=== PATIENT | female | born 1975 | race Caucasian/White ===

== ENCOUNTER 2023-07-20 15:38 | Emergency (ER) | payer OTHER, SELFPAY ==
[2023-07-20 15:45] VITALS: BP 125/81
[2023-07-20 16:02] LABS: % Basophils 0.7 % (0-2); % Eosinophils 3.5 % (0-6); % Immature Granulocytes 0.3 % (0-0.5); % Lymphocytes 26.7 % (20.5-51.1); % Monocytes 9.4 % (1.7-9.3); % Neutrophils 59.4 % (42.2-75.2); Absolute Basophils 0.1 10^3/uL (0-0.2); Absolute Eosinophils 0.3 10^3/uL (0-0.7); Absolute Monocytes 0.7 10^3/uL (0.1-0.6); Absolute Neutrophils 4.5 10^3/uL (1.4-6.5); Hematocrit 39.7 % (37.0-47.0); Hemoglobin 13.6 g/dL (12.0-16.0); Mean Corp Hgb Conc. 34.3 g/dL (33.0-37.0); Mean Corpuscular Hgb 27.5 pg (27.0-31.0); Mean Corpuscular Volume 80.4 fL (81.0-99.0); Nucleated Red Blood Cells % 0 %; Platelet Count 295 10^3/uL (130-400); Red Blood Cell Count 4.94 10^6/uL (4.20-5.40); Red Cell Dist. Width 13.2 % (11.5-14.5); White Blood Cell Count 7.6 10^3/uL (4.8-10.8)
[2023-07-20 16:27] LABS: ALT (SGPT) 19 U/L (0-35); AST (SGOT) 24 U/L (14-36); Albumin 3.9 g/dl (3.5-5.0); Alkaline Phosphatase 49 U/L (38-126); Blood Urea Nitrogen 12 mg/dl (7-17); Calcium 9.1 mg/dl (8.4-10.2); Carbon Dioxide 26 mmol/L (22-30); Chloride 103 mmol/L (98-107); Glucose 80 mg/dl (70-99); Sodium 136 mmol/L (135-145); Total Bilirubin 0.8 mg/dl (0.2-1.3); Total Protein 6.5 g/dl (6.3-8.2); eGFR > 60.00
[2023-07-20 16:29] LABS: Troponin I < 0.012 ng/ml
[2023-07-20 16:34] LABS: Potassium 3.9 mmol/L (3.5-5.1)
--- NOTE | 2023-07-20 18:15 | ED.GENMED ---
History of Present Illness
<Lotus Greene PA-C - Last Filed: 07/20/23 22:21>
General
Chief Complaint: Chest Pain
Source: patient
Exam Limitations: none
Time Seen by Provider: 07/20/23 17:41
Nursing documentation reviewed up to this point in time: agreed with
Travel History
Have you had any contact with someone who has COVID-19?: No
Do you have any symptoms of coronavirus? Fever > 100 degrees, chills, cough, shortness of breath, sore throat, loss of taste or smell, muscle aches, or headache?: No
History of Present Illness
History of Present Illness:
Patient is a 47 y.o female with history known a PFO and exercise induced asthma presenting for evaluation following an episode of heart palpitations earlier today with associated dyspnea. She states that she was washing dishes earlier today around
when she had an approximately 30 second episode of heart palpitations. She endorses difficulty breathing and coughing which have persisted following palpations earlier today. She has remained somewhat short of breath with speaking and
generalized fatigue. No fever, chills, She denies any recent viral illnesses. No lower extremity edema or pain. She denies any recent travel or surgeries. No history of blood clots.
She uses albuterol as needed prior to exercise.
Her PFO was found during her second when she has a somewhat similar episode of palpitation. She follows with Dr. Gannon every few years for monitoring of PFO with no plans for surgical correction at this point.
Past History
<Lotus Greene PA-C - Last Filed: 07/20/23 22:21>
Past History
ED Past Medical History: Other (Migraine headaches) and Other (Muscular back pain, anxiety)
ED Past Surgical History: Cholecystectomy and Gynecological (LEEP procedure)
Social History
Alcohol: None
Drug: None
Personal:
Employment: Employed
Family History
Family History: Other (Noncontributory)
Phy Exam
<Lotus Greene PA-C - Last Filed: 07/20/23 22:21>
Physical Exam
Physical Exam:
General: Well appearing and non-toxic, vital signs reviewed�patient afebrile
HEENT: Atraumatic, normocephalic; pupils equal round reactive to light bilaterally, extraocular muscles intact, protecting airway
Neck: appears supple
CV: Regular rate and rhythm, heart sounds normal, no evidence of cyanosis; no chest wall tenderness
Resp: No evidence of respiratory distress, lungs clear, no accessory muscle use
Abd: Soft, nontender non-distended
Extremities: No deformities no evidence of cyanosis or edema, no tenderness to calves bilaterally
Neuro: alert and oriented x [address], speech normal, no focal motor deficits
Psych: Normal affect
Skin: Intact, no rashes
Scores
<Lotus Grenee PA-C - Last Filed: 07/20/23 22:21>
Heart Score for Chest Pain Patients
STEMI patient?: No
History: Slightly or Non-Suspicious
ECG: Normal
Age: >45 - <65 years
Risk Factors: No Risk Factors
Troponin: </= Normal Limit
Heart Score for Chest Pain Patients: 1
Heart Score Risk: 2.5% MACE over next 6 weeks
Course
<Lotus Greene PA-C - Last Filed: 07/20/23 22:21>
Orders/Labs/Results
Orders:
Orders
07/20/23 15:39
ECG [Electrocardiogram (*1)] Urgent
Reason for Study: Chest Pain
EKG- Treatment ONCE
07/20/23 15:53
CMP [Comprehensive Metabolic Panel] Urgent
Complete Blood Count/With Diff Urgent
Troponin I Urgent
07/20/23 18:40
Ipratropium/Albuterol Sulfate [Duoneb] 3 ml INH R NOW ONE
07/20/23 19:00
D-Dimer Urgent
Abnormal Lab Results
07/20/23
15:53
MCV 80.4 L fL
(81.0-99.0)
Absolute Monos (auto) 0.7 H 10^3/uL
(0.1-0.6)
Monocytes % 9.4 H %
(1.7-9.3)
07/20/23 15:53
07/20/23 15:53
Vital Signs
Initial and Last Documented VS:
Initial Vital Signs
Temp Pulse Resp BP Pulse Ox
97.9 F 68 18 125/81 100
07/20/23 15:45 07/20/23 15:45 07/20/23 15:45 07/20/23 15:45 07/20/23 15:45
Last Documented Vital Signs
Temp Pulse Resp BP Pulse Ox
97.9 F 78 18 110/71 99
07/20/23 15:45 07/20/23 19:22 07/20/23 19:22 07/20/23 19:22 07/20/23 19:22
<Jaya Ferrell, DO - Last Filed: 07/20/23 19:37>
Orders/Labs/Results
Orders:
Orders
07/20/23 15:39
ECG [Electrocardiogram (*1)] Urgent
Reason for Study: Chest Pain
EKG- Treatment ONCE
07/20/23 15:53
CMP [Comprehensive Metabolic Panel] Urgent
Complete Blood Count/With Diff Urgent
Troponin I Urgent
07/20/23 18:40
Ipratropium/Albuterol Sulfate [Duoneb] 3 ml INH R NOW ONE
07/20/23 19:00
D-Dimer Urgent
Abnormal Lab Results
07/20/23
15:53
MCV 80.4 L fL
(81.0-99.0)
Absolute Monos (auto) 0.7 H 10^3/uL
(0.1-0.6)
Monocytes % 9.4 H %
(1.7-9.3)
07/20/23 15:53
07/20/23 15:53
Vital Signs
Initial and Last Documented VS:
Initial Vital Signs
Temp Pulse Resp BP Pulse Ox
97.9 F 68 18 125/81 100
07/20/23 15:45 07/20/23 15:45 07/20/23 15:45 07/20/23 15:45 07/20/23 15:45
Last Documented Vital Signs
Temp Pulse Resp BP Pulse Ox
97.9 F 78 18 110/71 99
07/20/23 15:45 07/20/23 19:22 07/20/23 19:22 07/20/23 19:22 07/20/23 19:22
<Lotus Greene PA-C - Last Filed: 07/20/23 22:21>
MDM/Problems Addressed
Differential Diagnosis Includes:
Arrhythmia, PVCs, asthma attack, PE, anxiety, etc.
MDM/Problems Addressed:
Patient is a 47-year-old female with known PFO and history of exercise-induced asthma presenting for evaluation following a brief episode of palpitations earlier today associated with shortness of breath and coughing. The palpitations lasted for
approximately 1 minute and she has continued to be slightly short of breath and coughing since. No true chest pain. No fever, chills, sore throat, nasal congestion. No recent travel or recent surgeries. No pain or swelling in lower extremities.
No history of blood clots. Patient is hemodynamically stable upon arrival to emergency department. Physical exam as documented above. Lungs clear, chest wall nontender. No signs of DVT in lower extremities. She is afebrile her oxygen saturation
is 100 on room air. Her EKG is unremarkable shows normal sinus rhythm without any signs of ischemia. Basic labs and troponin obtained in triage. CBC and CMP without any clinically significant abnormalities. Troponin negative. Given patient's
history of PFO and persistent shortness of breath�will obtain D-dimer. Will give DuoNeb for suspected asthma component.
D-dimer negative. Patient feeling better after DuoNeb.
Suspect symptoms are likely due to PVCs with associated asthma component leading to shortness of breath. She has remained stable in the emergency department with O2 saturations at 100. 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 She is stable for discharge with close return precautions, prompt cardiology follow-up for possible repeat echo and Holter monitor and pulmonology follow-up for the management of asthma. Recommended to utilize her albuterol inhaler as
needed for intermittent coughing and asthma symptoms. Patient is comfortable with this plan. All questions answered.
Chronic conditions affecting care:
PFO, asthma
Acute Exacerbation and/or Progression of Chronic Illness:
Asthma attack, palpitations
<Lotus Greene PA-C - Last Filed: 07/20/23 22:21>
*Pulse Oximetry
Patient hypoxic: no
*EKG
Interpreted by ED Provider?: Yes
EKG Intrepretation Date: 07/20/23
Interpretation: normal
Comparison EKG: no changes
Heart Rate: 60
Rate: normal
Rhythm: sinus
[place]: normal axis
Interval: normal interval
QRS Pattern: normal QRS
Ischemia: no ischemia
*Real Estate Associate Attorney Interpretation
Rate: Real Estate Associate Attorney- N/A
*Critical Care Note
Total Time (30-74mins, 75-104mins- exclusive of procedures): Not Applicable
ED Attending Note
<Lotus Greene PA-C - Last Filed: 07/20/23 22:21>
-
Portions of this chart may have been created with voice recognition software.� Occasional wrong word or��sound alike� substitutions may have occurred due to the inherent limitations of voice recognition software.
<Jaya Ferrell, DO - Last Filed: 07/20/23 19:37>
ED Attending Note
Patient seen and examined by attending physician: Yes
I performed the substantive portion of visit, reviewed & personally made and approve the management plan that is documented in note by myself or YOAV.: Yes
ED Attending Note:
Patient is a 47-year-old female with a history of PFO and exercise-induced asthma who presents after approximately 20-minute episode this afternoon of having palpitations. Patient states felt rather irregular and would have pounding beats. Patient
coughed and it seemed to break. Patient states that time is felt heaviness to her breathing but denies any chest heaviness or pressure. Patient denies any recent illnesses or injuries. Patient denies fever chills, nasal congestion, sore throat or
cough. Patient denies any GI or symptoms. Patient denies any leg pain or swelling. Patient denies any history of PE or DVT. Patient found her PFO during her second and had difficulty with breathing during her third . It
was thought that she was having an asthma attack at that time. Patient went on inhalers and seemed to do fine. Patient has been doing well since. On physical exam patient does not appear to be in any distress. Patient is normocephalic with
supple neck and no adenopathy or thyromegaly. Heart is regular without murmur or gallop. Lungs are clear. Chest is nontender. Abdomen soft nontender. Extremities without cyanosis, edema or tenderness. EKG reviewed and unremarkable. Patient's
labs were also reviewed. In addition did a D-dimer on the patient. I suspect the patient may have been having episodes of PVCs. Patient has a floating derrick operator with whom she follows but has not for some time. Patient will be referred back to her
floating derrick operator for possible Holter monitor and echocardiogram.
Discharge Plan
Departure
Patient Disposition: Home (Routine Discharge)
Date of Disposition: 07/20/23
Time of Disposition: 19:39
Patient with high blood pressure during this ER visit?: No
Condition: Good
Covid-19: Not Applicable
Discharge Problem:
History of palpitations, Dyspnea
Instructions: Asthma, Adult (DC), Palpitations (DC)
Prescriptions:
No Action
albuterol sulfate 1 PUFF HFA aerosol inhaler
2 puff inhalation R Q4HPRN PRN (Reason: dyspnea) Qty: 1 0RF
acetaminophen 325 MG tablet
650 mg PO Q4HPRN PRN (Reason: mild pain) 0RF
ibuprofen 600 MG tablet
600 mg PO Q4HPRN PRN (Reason: moderate pain/cramps) 0RF
norethindrone (contraceptive) 0.35 mg (21) Tablet
0.35 mg PO DAILY
vitamin B complex Capsule
1 cap PO DAILY
magnesium Tablet
1 tab PO DAILY
[place] 3
1 tab PO DAILY
Vitamin D3
1 tab PO DAILY
biotin
1 tab PO DAILY
calcium
1 tab PO DAILY
collagen
1 tab PO DAILY
Referrals:
Radha Nelson MD [Active] - Call in 1-3 days for appt
Geovanni Jackson MD [Family Provider] -
Brianne Gannon MD [Active] - Call in 1-3 days for appt
Activity Restrictions/Additional Instructions:
-Return to the emergency department with any chest pain, shortness of breath, persistent palpitations, worsening in current symptoms, or any other concerns
-You should follow-up with your floating derrick operator shortly for further evaluation
-Follow-up with your director of broadcast for further evaluation/treatment of asthma
-You can use your albuterol inhaler as prescribed for intermittent coughing or asthma symptoms
Interventions
Interventions:
*Risk Screen - Suicide Last Done: 07/20/23 17:36
*General Assessment Last Done: 07/20/23 17:36
*Neglect/Abuse Screening Last Done: 07/20/23 17:36
ED- Fall Risk Assessment Last Done: 07/20/23 17:36
*ED COVID-19 Vaccine History Last Done: 07/20/23 17:36
*Nursing Disposition Last Done: 07/20/23 19:52
ED- Cardiac Assessment Last Done: 07/20/23 17:36
Discharge Date and Time
Discharge Date/Time: 07/20/23 19:55
[2023-07-20] MEDS: DUONEB 3 ML INH (18:51)
[2023-07-20 19:18] LABS: D-Dimer 0.32 ug/mlFEU (0.00-0.50)
[2023-07-20 19:22] VITALS: BP 110/71
== END 2023-07-20 19:55 | disposition home or self-care (01) ==
LOC: EMR 15:38
PROVIDERS: Physician Assistant; EMERGENCY PHYSICIAN Emergency Medicine; FAMILY PHYSICIAN Internal Medicine
DX: R00.2 Palpitations (principal); R06.00 Dyspnea, unspecified; J45.909 Unspecified asthma, uncomplicated; Z87.74 Personal history of (corrected) congenital malformations of heart and circulatory system; Z90.49 Acquired absence of other specified parts of digestive tract
CPT/HCPCS: 99283; 94640; 80053; 84484; 85025; 85379; 93005

== ENCOUNTER → 2023-07-27 17:16 | Outpatient (REF) | payer OTHER, SELFPAY | LOC: RCS 17:16 | PROVIDERS: ATTENDING PHYSICIAN Internal Medicine Cardiovascular Disease; FAMILY PHYSICIAN Internal Medicine | DX: R00.2 Palpitations (principal) | CPT/HCPCS: 93306 ==

== ENCOUNTER → 2023-08-02 17:24 | Outpatient (REF) | payer OTHER, SELFPAY | LOC: PAVMRI 17:24 | PROVIDERS: ATTENDING PHYSICIAN Psychiatry & Neurology Neurology; FAMILY PHYSICIAN Internal Medicine | DX: R26.89 Other abnormalities of gait and mobility (principal); Z82.0 Family history of epilepsy and other diseases of the nervous system | CPT/HCPCS: 72141 ==

== ENCOUNTER → 2023-09-02 15:14 | Outpatient (REF) | payer OTHER, SELFPAY ==
--- NOTE | 2023-09-02 16:08 | PTCARENOTE ---
Pt here for Echo Bubble Study. Right median antecubital 22 G PC inserted, rapid blood return. Bubble Study protocol followed, aseptic technique utilized. Pt tolerated procedure well, denies dizziness, denies chest pain. [facility] D/C ed at 1604,site
clear, no redness, no edema. Pressure held, no bleeding, 2x2 applied and taped. No change in pt status.
== END ==
LOC: RCS 15:14
PROVIDERS: ATTENDING PHYSICIAN Internal Medicine Cardiovascular Disease; FAMILY PHYSICIAN Pediatrics
DX: R06.02 Shortness of breath (principal)
CPT/HCPCS: 93307

== ENCOUNTER → 2023-12-27 18:11 | Outpatient (REF) | payer OTHER, SELFPAY | LOC: WDC 18:11 | PROVIDERS: ATTENDING PHYSICIAN Internal Medicine | DX: Z12.31 Encounter for screening mammogram for malignant neoplasm of breast (principal) | CPT/HCPCS: 77063; 77067 ==